=== PATIENT | male | born 1945 | race Caucasian/White ===

== ENCOUNTER 2019-03-01 10:27 | Day surgery (SDC) | payer MEDICARE, BC ==
[2019-02-23 10:29] LABS: ALBUMIN 3.8 G/DL (3.4-5.0); ANION GAP 8 (8-16); BASOPHILS % (AUTO) 0.5 % (0-1); BLOOD UREA NITROGEN 13 MG/DL (7-18); BUN/CREATININE RATIO 14.4 (5.4-32.0); CALCIUM 9.5 MG/DL (8.5-10.1); CHLORIDE 107 MMOL/L (99-107); EOSINOPHILS # (AUTO) 0.2 X10'3 (0-0.9); EOSINOPHILS % (AUTO) 3.3 % (0-6); GLUCOSE 100 MG/DL (70-104); HEMATOCRIT 46.5 % (42.0-52.0); HEMOGLOBIN 15.8 g/dl (14.0-17.9); LYMPHOCYTES # (AUTO) 1.5 X10'3 (1.1-4.8); LYMPHOCYTES % (AUTO) 22.4 % (21-51); MEAN CORPUSCULAR HEMOGLOBIN 30.8 PG (27.0-31.0); MEAN CORPUSCULAR HGB CONC 34.1 g/dL (33.0-36.5); MEAN CORPUSCULAR VOLUME 90.4 FL (78-98); MEAN PLATELET VOLUME 8.7 FL (7.4-10.4); MONOCYTES # (AUTO) 0.7 X10'3 (0-0.9); MONOCYTES % (AUTO) 9.9 % (2-12); NEUTROPHILS # (AUTO) 4.4 X10'3 (1.8-7.7); NEUTROPHILS % (AUTO) 63.9 % (42-75); PLATELET COUNT 211 X10'3 (140-440); POTASSIUM 4.1 MMOL/L (3.5-5.1); RED BLOOD COUNT 5.15 X10'6 (4.70-6.10); RED CELL DISTRIBUTION WIDTH 13.3 % (11.5-14.5); SODIUM 142 MMOL/L (135-145); TOTAL CARBON DIOXIDE 27.3 MMOL/L (24-32); WHITE BLOOD COUNT 6.9 X10'3 (4.5-11.0); eGFR 83 ML/MIN
[2019-02-23 10:37] LABS: PARTIAL THROMBOPLASTIN TIME 30 SECONDS (22-32)
[~2019-03-01] VITALS: Ht 172.7 cm; Wt 82.2 kg
[2019-03-01] VITALS (9 sets, daily range): BP systolic 112–161; BP diastolic 65–83
[~2019-03-01 10:27] MED LIST: ASPI-611 PO; LISI-604 PO; SIMV40TA PO
[2019-03-01] MEDS ORDERED: normal saline 1,000 ML IV SCH (10:55)
[2019-03-01] MEDS ORDERED: diphenhydrAMINE 25mg capsule PO PRN (10:55)
[2019-03-01] MEDS ORDERED: LORazepam 0.5 MG tablet PO PRN (10:55)
[2019-03-01] MEDS ORDERED: MULT-955 PO (11:23)
[2019-03-01] MEDS ORDERED: ATOR40TA PO (11:23)
[2019-03-01] MEDS ORDERED: NITR0.4T48 SL (11:23)
[2019-03-01] MEDS ORDERED: IBUP-1985 PO (11:23)
[2019-03-01] MEDS ORDERED: verapamil 2.5 mg/ml inj IV ONE (13:30)
[2019-03-01] MEDS ORDERED: nitroGLYCERIN-Tridil 50MG/D5W 250 ML IV ONE (13:30)
[2019-03-01] MEDS ORDERED: fentaNYL/PF 50MCG/1 ML 2ML syringe ONE (13:31)
[2019-03-01] MEDS ORDERED: iohexol 350MG/ML 100ml bottle IV ONE ×2 (13:31→14:19)
[2019-03-01] MEDS ORDERED: midazolam 2 mg/2 ml injection ONE (13:31)
[2019-03-01] MEDS ORDERED: LIDOcaine 1% (10mg/ml)w/preservative injection 20ml MDV ONE (13:31)
[2019-03-01] MEDS ORDERED: heparin 1,000unit/ml 10ml vial 10 ML ONE ×2 (13:31→14:14)
[2019-03-01] MEDS ORDERED: proCHLORperazine 10 MG/2 ml inj ONE (13:50)
== END 2019-03-01 19:05 | disposition home or self-care (01) ==
LOC: SSTAY O 10:27
PROVIDERS: ATTEND Internal Medicine Interventional Cardiology
DX: T82.855A Stenosis of coronary artery stent, initial encounter (principal); I25.10 Atherosclerotic heart disease of native coronary artery without angina pectoris; Z95.5 Presence of coronary angioplasty implant and graft; Y92.89 Other specified places as the place of occurrence of the external cause; Y83.8 Other surgical procedures as the cause of abnormal reaction of the patient, or of later complication, without mention of misadventure at the time of the procedure
CPT/HCPCS: 36415; 80048; 85025; 85610; 85730; 92920; 93005; 93458; A6257; C1760; C1769; C1887; J0780; J1644; J2001; J2250; J3010; J7030; Q0163; Q9967; 99152; 99153; A4620; J3490

== ENCOUNTER 2024-02-09 09:14 | Day surgery (SDC) | payer MEDICARE, OTHER ==
[2024-02-05 08:47] LABS: BASOPHILS % (AUTO) 0.5 % (0-1); EOSINOPHILS # (AUTO) 0.3 X10'3 (0-0.9); EOSINOPHILS % (AUTO) 4.3 % (0-6); HEMATOCRIT 40.5 % (42.0-52.0); LYMPHOCYTES # (AUTO) 1.3 X10'3 (1.1-4.8); LYMPHOCYTES % (AUTO) 20.9 % (21-51); MEAN CORPUSCULAR HEMOGLOBIN 31.9 PG (27.0-31.0); MEAN CORPUSCULAR HGB CONC 34.6 g/dL (33.0-36.5); MEAN CORPUSCULAR VOLUME 92.2 FL (78-98); MEAN PLATELET VOLUME 8.3 FL (7.4-10.4); MONOCYTES # (AUTO) 0.7 X10'3 (0-0.9); MONOCYTES % (AUTO) 10.5 % (2-12); NEUTROPHILS % (AUTO) 63.8 % (42-75); PLATELET COUNT 185 X10'3 (140-440); RED CELL DISTRIBUTION WIDTH 13.1 % (11.5-14.5); WHITE BLOOD COUNT 6.3 X10'3 (4.5-11.0)
[2024-02-05 09:00] LABS: APTT 28 SECONDS (22-32); PROTHROMBIN TIME 10.7 SECONDS (9.0-12.0)
[2024-02-05 09:03] LABS: ALBUMIN 3.8 G/DL (3.4-5.0); ANION GAP 6 (8-16); BLOOD UREA NITROGEN 16 MG/DL (7-18); CALCIUM 9.1 MG/DL (8.5-10.1); CHLORIDE 107 MMOL/L (99-107); CHOL/HDL RATIO 2.7 (0.00-4.99); CHOLESTEROL 125 MG/DL (0-200); CREATININE 0.84 MG/DL (0.60-1.10); GLUCOSE 104 MG/DL (70-104); HDL CHOLESTEROL 46 MG/DL (35-60); LDL CHOLESTEROL 63 MG/DL (50-100); POTASSIUM 4.5 MMOL/L (3.5-5.1); SODIUM 141 MMOL/L (135-145); TOTAL CARBON DIOXIDE 27.6 MMOL/L (24-32); TRIGLYCERIDES 93 MG/DL (20-135); eGFR 89 ML/MIN
[~2024-02-09] VITALS: Ht 172.7 cm; Wt 83.9 kg
[2024-02-09] VITALS (7 sets, daily range): BP systolic 140–162; BP diastolic 71–94; PULSE 56–65; RESP 14–17; TEMP 97.6; O2SAT 94–96
[~2024-02-09 09:14] MED LIST changes: +ATOR40TA PO; +IBUP-1985 PO; -LISI-604 PO; +LISI5TAB22 PO; +MULT-955 PO; +NITR0.4T48 SL; -SIMV40TA PO
[2024-02-09] MEDS ORDERED: LISI20TA28 PO (09:30)
[2024-02-09] MEDS ORDERED: FLO0.4C PO (09:31)
[2024-02-09] MEDS ORDERED: OMEG100037 PO (09:32)
[2024-02-09] MEDS ORDERED: VITE1000C PO (09:32)
[2024-02-09] MEDS ORDERED: VITD400T PO (09:34)
[2024-02-09] MEDS: LORazepam 0.5 MG tablet PO PRN (10:26)
[2024-02-09] MEDS: diphenhydrAMINE 25mg capsule PO PRN (10:46)
[2024-02-09] MEDS: normal saline 1,000 ML IV SCH (10:46)
[2024-02-09] MEDS ORDERED: verapamil 2.5 mg/ml inj IV ONE (11:35)
[2024-02-09] MEDS ORDERED: LIDOcaine 1% (10mg/ml) 2ml vial ONE ×2 (11:35→11:44)
[2024-02-09] MEDS ORDERED: fentaNYL/PF 50MCG/1 ML 2ML syringe ONE (11:35)
[2024-02-09] MEDS ORDERED: heparin 1,000unit/ml 10ml vial 10 ML ONE (11:35)
[2024-02-09] MEDS ORDERED: midazolam 1 mg/ML 2ml injection ONE (11:35)
[2024-02-09] MEDS ORDERED: iohexol 350MG/ML 100ml bottle IV ONE (11:36)
[2024-02-09] MEDS ORDERED: nitroGLYCERIN 500mcg/5mL D5W 5 ML IV ONE (11:42)
[2024-02-09 12:50] LABS: ISTAT HGB ART 11.9 g/dl (14.0-17.9); ISTAT Hct ART 35 %PCV (42-52); ISTAT O2 SATURATION ARTERIAL 92 % (95-98); ISTAT SOURCE ART
[2024-02-09 13:07] LABS: ISTAT HGB MIX 12.6 g/dl (14.0-17.9); ISTAT Hct MIX 37 %PCV (42-52); ISTAT O2 SATURATION MIX VENOUS 68 % (60-80); ISTAT SOURCE VEN
[2024-02-09] MEDS ORDERED: HYDROcodone/acetaminophen 10/325mg tab PO PRN (13:30)
[2024-02-09] MEDS ORDERED: HYDROcodone/acetaminophen 5mg/325mg tablet PO PRN (13:30)
== END 2024-02-09 15:12 | disposition home or self-care (01) ==
LOC: SSTAY O 09:14
PROVIDERS: ATTEND Student in an Organized Health Care Education/Training Program
DX: I35.0 Nonrheumatic aortic (valve) stenosis (principal); I10 Essential (primary) hypertension; I25.10 Atherosclerotic heart disease of native coronary artery without angina pectoris; E78.00 Pure hypercholesterolemia, unspecified; Z86.73 Personal history of transient ischemic attack (TIA), and cerebral infarction without residual deficits; Z79.82 Long term (current) use of aspirin; Z79.899 Other long term (current) drug therapy; Z88.8 Allergy status to other drugs, medicaments and biological substances
CPT/HCPCS: 36415; 80048; 80061; 82803; 85014; 85025; 85610; 85730; 93005; 93456; 99152; A6258; J1644; J2250; J3010; J3490; J7030; Q0163; Q9967; 96360; A6402; C1751; C1894

== ENCOUNTER 2024-02-12 10:31 | Outpatient (CLI) | payer MEDICARE, OTHER ==
[~2024-02-12 10:31] MED LIST changes: +FLO0.4C PO; -IBUP-1985 PO; +LISI20TA28 PO; -LISI5TAB22 PO; +OMEG100037 PO; +Thrombin (Bovine) 5,000 unit vial TP ONE; +VITD400T PO; +VITE1000C PO
[2024-02-12 11:41] LABS: BASOPHILS % (AUTO) 0.5 % (0-1); EOSINOPHILS # (AUTO) 0.2 X10'3 (0-0.9); HEMATOCRIT 42.3 % (42.0-52.0); HEMOGLOBIN 14.5 g/dl (14.0-17.9); LYMPHOCYTES # (AUTO) 1.3 X10'3 (1.1-4.8); LYMPHOCYTES % (AUTO) 19.5 % (21-51); MEAN CORPUSCULAR HGB CONC 34.2 g/dL (33.0-36.5); MEAN CORPUSCULAR VOLUME 93.5 FL (78-98); MEAN PLATELET VOLUME 8.6 FL (7.4-10.4); MONOCYTES # (AUTO) 0.7 X10'3 (0-0.9); MONOCYTES % (AUTO) 9.9 % (2-12); NEUTROPHILS # (AUTO) 4.5 X10'3 (1.8-7.7); NEUTROPHILS % (AUTO) 67.1 % (42-75); PLATELET COUNT 189 X10'3 (140-440); RED BLOOD COUNT 4.52 X10'6 (4.70-6.10); RED CELL DISTRIBUTION WIDTH 13.4 % (11.5-14.5); WHITE BLOOD COUNT 6.7 X10'3 (4.5-11.0)
[2024-02-12 11:56] LABS: APTT 28 SECONDS (22-32); PROTHROMBIN TIME 10.8 SECONDS (9.0-12.0)
[2024-02-12 12:04] LABS: ALANINE AMINOTRANSFERASE 27 U/L (12-78); ALBUMIN 3.8 G/DL (3.4-5.0); ALBUMIN/GLOBULIN RATIO 1.1 (1.1-1.5); ALKALINE PHOSPHATASE 72 IU/L (46-116); ANION GAP 5 (8-16); ASPARTATE AMINO TRANSFERASE 14 U/L (10-37); BILIRUBIN,TOTAL 0.4 MG/DL (0.1-1.0); BLOOD UREA NITROGEN 15 MG/DL (7-18); BUN/CREATININE RATIO 18.3 (10.0-20.0); CALCIUM 9.6 MG/DL (8.5-10.1); CHLORIDE 107 MMOL/L (99-107); CHOL/HDL RATIO 2.8 (0.00-4.99); CHOLESTEROL 125 MG/DL (0-200); CREATININE 0.82 MG/DL (0.60-1.10); GLUCOSE 101 MG/DL (70-104); HDL CHOLESTEROL 44 MG/DL (35-60); LDL CHOLESTEROL 65 MG/DL (50-100); POTASSIUM 4.7 MMOL/L (3.5-5.1); PRO BRAIN NATRIURETIC PEPTIDE 97 PG/ML (0-450); SODIUM 141 MMOL/L (135-145); TOTAL CARBON DIOXIDE 29.4 MMOL/L (24-32); TOTAL PROTEIN 7.3 G/DL (6.4-8.2); TRIGLYCERIDES 116 MG/DL (20-135); eGFR > 90 ML/MIN
[2024-02-12] MEDS ORDERED: IODIXANOL 320 MG/ML INFUS..BTL 100ML IV ONE (12:23)
== END 2024-02-12 23:59 | disposition home or self-care (01) ==
LOC: RAD 10:31
PROVIDERS: ATTEND Internal Medicine Cardiovascular Disease
DX: I65.29 Occlusion and stenosis of unspecified carotid artery (principal); I70.0 Atherosclerosis of aorta; I35.0 Nonrheumatic aortic (valve) stenosis; R06.02 Shortness of breath
CPT/HCPCS: 36415; 71046; 71275; 74174; 75572; 80053; 80061; 83880; 85025; 85610; 85730; J3490; Q9967

== ENCOUNTER 2024-03-24 05:38 | Inpatient (IN) | payer MEDICARE, OTHER ==
[2024-03-16 14:31] LABS: BILIRUBIN,URINE NEGATIVE (Neg); CLARITY,URINE CLEAR (Clear); COLOR,URINE YELLOW (Yellow); GLUCOSE, URINE NEGATIVE (Neg); KETONES,URINE NEGATIVE (Neg); LEUKOCYTE ESTERASE ,URINE NEGATIVE (Neg); NITRITES, URINE NEGATIVE (Neg); OCCULT BLOOD,URINE NEGATIVE (Neg); PROTEIN,URINE NEGATIVE (Neg); UROBILINOGEN,URINE 0.2 E.U/dL (0.2-1.0)
[2024-03-16 14:37] LABS: BASOPHILS % (AUTO) 0.5 % (0-1); EOSINOPHILS # (AUTO) 0.3 X10'3 (0-0.9); EOSINOPHILS % (AUTO) 4.6 % (0-6); LYMPHOCYTES # (AUTO) 1.4 X10'3 (1.1-4.8); LYMPHOCYTES % (AUTO) 21.7 % (21-51); MEAN CORPUSCULAR HEMOGLOBIN 31.6 PG (27.0-31.0); MEAN CORPUSCULAR HGB CONC 34.4 g/dL (33.0-36.5); MEAN CORPUSCULAR VOLUME 91.9 FL (78-98); MEAN PLATELET VOLUME 8.5 FL (7.4-10.4); MONOCYTES # (AUTO) 0.7 X10'3 (0-0.9); MONOCYTES % (AUTO) 11.3 % (2-12); NEUTROPHILS % (AUTO) 61.9 % (42-75); PRE OP HEMATOCRIT 39.9 % (42.0-52.0); PRE OP HEMOGLOBIN 13.7 g/dL (14.0-17.9); PRE OP PLATELET COUNT 171 X10'3 (140-440); PRE OP WHITE BLOOD COUNT 6.5 10'3 (4.8-10.8); RED BLOOD COUNT 4.34 X10'6 (4.70-6.10); RED CELL DISTRIBUTION WIDTH 13.4 % (11.5-14.5)
[2024-03-16 14:42] LABS: UA COLLECTION TYPE CLN CATCH MIDSTREAM
[2024-03-16 14:46] LABS: ALBUMIN 3.8 G/DL (3.4-5.0); ALBUMIN/GLOBULIN RATIO 1.1 (1.1-1.5); ALKALINE PHOSPHATASE 76 IU/L (46-116); BLOOD UREA NITROGEN 23 MG/DL (7-18); BUN/CREATININE RATIO 22.3 (10.0-20.0); CALCIUM 9.3 MG/DL (8.5-10.1); CHLORIDE 106 MMOL/L (99-107); CREATININE 1.03 MG/DL (0.60-1.10); PRE OP ALT 33 U/L (30-65); PRE OP ANION GAP 8 (8-16); PRE OP AST 16 U/L (10-37); PRE OP BILIRUB, TOTAL 0.4 MG/DL (0.0-1.0); PRE OP GLUCOSE 103 MG/DL (70-104); PRE OP POTASSIUM 3.9 MMOL/L (3.4-5.1); PRE OP SODIUM 142 MMOL/L (135-145); PRO BRAIN NATRIURETIC PEPTIDE 71 PG/ML (0-450); TOTAL CARBON DIOXIDE 27.9 MMOL/L (24-32); TOTAL PROTEIN 7.2 G/DL (6.4-8.2); eGFR 70 ML/MIN
[2024-03-16 15:16] LABS: PRE OP INR 1.1 INR; PRE OP PROTIME 11.3 SECONDS (9.0-12.0)
[2024-03-24] VITALS (22 sets, daily range): BP systolic 134–190; BP diastolic 55–121; PULSE 46–67; RESP 9–17; TEMP 97.6; O2SAT 94–100
[~2024-03-24] VITALS: Ht 172.7 cm; Wt 81.5 kg
[2024-03-24] MEDS: phenylephrine inj 50 MG in normal saline 250ml IV solN IV SCH (05:30)
[2024-03-24] MEDS: nitroPRUSSIDE (NIPRIDE) (200MCG/ML) 100ML Drip IV SCH (05:30)
[~2024-03-24 05:38] MED LIST changes: +ASCO-248 PO; +CALC500T63 PO; +CHOL-4 PO; -FLO0.4C PO; +FOLI0.8T3 PO; -NITR0.4T48 SL; -Thrombin (Bovine) 5,000 unit vial TP ONE; +UBID1CAP54 PO; -VITD400T PO; -VITE1000C PO; +ZINC50TA60 PO; +ondansetron/PF 4mg/2ml inj IV PRN
[2024-03-24] MEDS: ringers solution, lacted 1,000 ML IV SCH (06:26)
[2024-03-24] MEDS: cefazolin 2gm/D5W 100mL 100 ML IV ONE (06:26)
[2024-03-24] MEDS: aspirin 325mg tablet PO ONE (06:26)
[2024-03-24] MEDS: famotidine 20mg tablet PO ONE (06:26)
[2024-03-24] MEDS: vancomycin 1,500 MG in NS 300ml IV soln IV ONE (06:28)
[2024-03-24] MEDS ORDERED: iohexol 350MG/ML 100ml bottle IV ONE ×2 (06:42→08:11)
[2024-03-24] MEDS ORDERED: LIDOcaine 1% 30ml preserv. free vial ONE (06:42)
[2024-03-24] MEDS ORDERED: heparin 1,000 UNITS/NS 500ml 1,500 ML ONE (06:43)
[2024-03-24] MEDS ORDERED: sevoflurane 250ml liquid IH ONE (06:57)
[2024-03-24] MEDS ORDERED: midazolam 1 mg/ML 2ml injection ONE (07:07)
[2024-03-24] MEDS ORDERED: fentaNYL/PF 50MCG/1 ML 2ML syringe ONE (07:07)
[2024-03-24] MEDS: protamine sulfate 10mg/ml inj. ONE (07:33)
[2024-03-24] MEDS ORDERED: ZINC AMINO ACID CHELATE PO SCH (08:00)
[2024-03-24] MEDS ORDERED: OMEGA-3/DHA/EPA/FISH OIL 1 EACH CAPSULE.DR PO SCH (08:00)
[2024-03-24] MEDS ORDERED: CHOLECALCIFEROL 250 MCG PO SCH (08:00)
[2024-03-24] MEDS ORDERED: folic acid 0.4mg tablet PO SCH (08:00)
[2024-03-24] MEDS ORDERED: VIT E ACETATE PO SCH (08:00)
[2024-03-24] MEDS ORDERED: UBIDECARENONE PO SCH (08:00)
[2024-03-24] MEDS ORDERED: atorvastatin 20mg tablet PO SCH (08:00)
[2024-03-24] MEDS ORDERED: lisinopril 20mg tablet PO SCH (08:00)
[2024-03-24] MEDS ORDERED: calcium carbonate 500mg tablet PO SCH (08:00)
[2024-03-24] MEDS ORDERED: multivitamins, therapeutics tablet PO SCH (08:00)
[2024-03-24] MEDS ORDERED: ascorbic acid 500mg tablet PO SCH (08:00)
[2024-03-24] MEDS ORDERED: aspirin 81mg tab.chew PO SCH (08:00)
[2024-03-24] MEDS ORDERED: LIDOcaine 1%/PF 5ML 10 MG/ML VIAL ONE (08:22)
[2024-03-24] MEDS ORDERED: propofol inj 20 ML IV ONE (08:22)
[2024-03-24] MEDS ORDERED: heparin 1,000unit/ml 10ml vial 10 ML ONE (08:22)
[2024-03-24] MEDS ORDERED: dexamethasone sod phosphate 4mg/ml inj. ONE (08:27)
[2024-03-24] MEDS ORDERED: ondansetron/PF 4mg/2ml inj ONE (08:27)
[2024-03-24] MEDS ORDERED: ondansetron/PF 4mg/2ml inj IV PRN (09:35)
[2024-03-24] MEDS ORDERED: proCHLORperazine 10 MG/2 ml inj IV PRN (09:35)
[2024-03-24] MEDS ORDERED: labetalol 20mg/4ml (5mg/ml) syringe IV PRN (09:35)
[2024-03-24] MEDS ORDERED: morphine 4 MG/ML inj SYRINge IV PRN (09:35)
[2024-03-24] MEDS ORDERED: ringers solution, lacted 1,000 ML IV SCH (09:35)
[2024-03-24] MEDS ORDERED: meperidine/PF 25mg/ml syringe IV PRN ×2 (09:35)
[2024-03-24] MEDS ORDERED: morphine 2 MG/ML inj. syringe IV PRN (09:35)
[2024-03-24] MEDS: meperidine/PF 25mg/ml syringe IV PRN (09:50)
[2024-03-24] MEDS: enalaprilat dihydrate 2.5mg/2ml vial IV PRN (10:01)
== END 2024-03-24 15:45 | disposition home or self-care (01) | DRG 287 ==
LOC: PAS IN 05:38
PROVIDERS: ADMIT Internal Medicine Cardiovascular Disease; ATTEND Internal Medicine Cardiovascular Disease
PROC: 03HY32Z Insertion of Monitoring Device into Upper Artery, Percutaneous Approach (ICD-10-PCS; 2024-03-24)
PROC: B41D1ZZ Fluoroscopy of Aorta and Bilateral Lower Extremity Arteries using Low Osmolar Contrast (ICD-10-PCS; 2024-03-24)
PROC: 03JY3ZZ Inspection of Upper Artery, Percutaneous Approach (ICD-10-PCS; 2024-03-24)
PROC: B211YZZ Fluoroscopy of Multiple Coronary Arteries using Other Contrast (ICD-10-PCS; principal; 2024-03-24 06:57)
DX: I35.0 Nonrheumatic aortic (valve) stenosis (principal); I25.10 Atherosclerotic heart disease of native coronary artery without angina pectoris; E78.5 Hyperlipidemia, unspecified; I10 Essential (primary) hypertension; Z88.8 Allergy status to other drugs, medicaments and biological substances; Z85.46 Personal history of malignant neoplasm of prostate; Z53.9 Procedure and treatment not carried out, unspecified reason
CPT/HCPCS: 36415; 71046; 76937; 80053; 81003; 82948; 83880; 85025; 85347; 85610; 85730; 86885; 86900; 86901; 86920; 87081; 93005; 93308; 93458; 93567; A4615; A4618; A6258; A6449; C1756; C1760; C1769; C1894; J0690; J1100; J1644; J2175; J2250; J2371; J2405; J2704; J2720; J3010; J3370; J3490; J7040; J7050; J7120; Q9967

== ENCOUNTER 2024-03-26 10:09 | Emergency (ER) | payer MEDICARE, OTHER ==
[~2024-03-26] VITALS: Ht 172.7 cm; Wt 83.6 kg
[~2024-03-26 10:09] MED LIST changes: -ondansetron/PF 4mg/2ml inj IV PRN
[2024-03-26 10:14] VITALS: TEMP 98.8
[2024-03-26 10:52] VITALS: BP 162/71; PULSE 61; RESP 19; O2SAT 96
[2024-03-26] MEDS ORDERED: KEF125L PO (11:34)
== END 2024-03-26 11:47 | disposition home or self-care (01) ==
LOC: ER 10:09
DX: L03.314 Cellulitis of groin (principal); M79.605 Pain in left leg; Z88.8 Allergy status to other drugs, medicaments and biological substances; Z79.82 Long term (current) use of aspirin; Z79.899 Other long term (current) drug therapy
CPT/HCPCS: 93971; 99284

== ENCOUNTER 2024-04-06 08:49 | Emergency (ER) | payer MEDICARE, OTHER ==
[~2024-04-06] VITALS: Ht 172.7 cm; Wt 81.8 kg
[~2024-04-06 08:49] MED LIST changes: -ASCO-248 PO; +FLO0.4C PO; +HYDR-3972 PO; -LISI20TA28 PO; +LOP25T PO; -UBID1CAP54 PO
[2024-04-06 08:51] VITALS: PULSE 99; TEMP 98.9
[2024-04-06 10:01] VITALS: BP 109/69; RESP 15; O2SAT 98
== END 2024-04-06 10:03 | disposition home or self-care (01) ==
LOC: ER 08:50
DX: L03.116 Cellulitis of left lower limb (principal); I25.10 Atherosclerotic heart disease of native coronary artery without angina pectoris; Z88.8 Allergy status to other drugs, medicaments and biological substances; Z79.82 Long term (current) use of aspirin; Z79.899 Other long term (current) drug therapy
CPT/HCPCS: 99282; A6258; A6402; A6449

== ENCOUNTER 2024-04-07 18:43 | Emergency (ER) | payer MEDICARE, OTHER ==
[~2024-04-07] VITALS: Ht 172.7 cm; Wt 80.0 kg
[2024-04-07 18:53] VITALS: TEMP 98.3
[2024-04-07 19:18] LABS: BASOPHILS % (AUTO) 0.1 % (0-1); EOSINOPHILS # (AUTO) 0.4 X10'3 (0-0.9); EOSINOPHILS % (AUTO) 3.1 % (0-6); HEMATOCRIT 30.4 % (42.0-52.0); HEMOGLOBIN 10.2 g/dl (14.0-17.9); LYMPHOCYTES # (AUTO) 1.3 X10'3 (1.1-4.8); LYMPHOCYTES % (AUTO) 8.8 % (21-51); MEAN CORPUSCULAR HEMOGLOBIN 31.7 PG (27.0-31.0); MEAN CORPUSCULAR HGB CONC 33.4 g/dL (33.0-36.5); MEAN CORPUSCULAR VOLUME 94.8 FL (78-98); MEAN PLATELET VOLUME 8.5 FL (7.4-10.4); MONOCYTES # (AUTO) 1.8 X10'3 (0-0.9); MONOCYTES % (AUTO) 12.6 % (2-12); NEUTROPHILS # (AUTO) 10.7 X10'3 (1.8-7.7); NEUTROPHILS % (AUTO) 75.4 % (42-75); PLATELET COUNT 188 X10'3 (140-440); RED BLOOD COUNT 3.21 X10'6 (4.70-6.10); RED CELL DISTRIBUTION WIDTH 13.9 % (11.5-14.5); WHITE BLOOD COUNT 14.2 X10'3 (4.5-11.0)
[2024-04-07 19:35] LABS: ALBUMIN 2.9 G/DL (3.4-5.0); ANION GAP 9 (8-16); BLOOD UREA NITROGEN 18 MG/DL (7-18); BUN/CREATININE RATIO 15.8 (10.0-20.0); CALCIUM 8.6 MG/DL (8.5-10.1); CHLORIDE 101 MMOL/L (99-107); CREATININE 1.14 MG/DL (0.60-1.10); GLUCOSE 130 MG/DL (70-104); POTASSIUM 3.8 MMOL/L (3.5-5.1); PRO BRAIN NATRIURETIC PEPTIDE 3233 PG/ML (0-450); SODIUM 136 MMOL/L (135-145); TOTAL CARBON DIOXIDE 25.9 MMOL/L (24-32); eCRCL 53 ML/MIN; eGFR 62 ML/MIN
[2024-04-07 19:42] LABS: PLATELET ESTIMATE NORMAL; POLYCHROMASIA FEW; TOTAL CELLS COUNTED 100
[2024-04-07 19:43] LABS: BURR CELLS FEW
[2024-04-07 22:00] VITALS: BP 105/73; PULSE 92; RESP 17; O2SAT 93
== END 2024-04-07 22:12 | disposition home or self-care (01) ==
LOC: ER 18:44
DX: R00.0 Tachycardia, unspecified (principal); Z88.8 Allergy status to other drugs, medicaments and biological substances; Z79.82 Long term (current) use of aspirin; Z79.899 Other long term (current) drug therapy
CPT/HCPCS: 36415; 71045; 80048; 83880; 84484; 85007; 85025; 93005; 99285